=== PATIENT | female | born 1930 | race Caucasian/White ===

== ENCOUNTER 2019-06-13 18:28 | Inpatient (IN) | payer MEDICARE, OTHER ==
[~2019-06-13] VITALS: Ht 152.4 cm; Wt 63.7 kg
[~2019-06-13 18:28] MED LIST: ALPR0.254 PO; ASPI-817 PO; DIAZ5TAB4 PO; DOCU-144 PO; HYDR25TA6 PO; LORA10TA3 PO; MECL-77 PO; OMEP20CA17 PO; PRAV20TA63 PO; VALS160T20 PO; ZOLP5TAB7 PO
[2019-06-13 22:10] VITALS: Ht 152.4 cm; Wt 63.7 kg
[2019-06-13] MEDS ORDERED: MAGNESIUM HYDROXIDE 30ML CUP PO PRN (23:30)
[2019-06-13] MEDS ORDERED: LACTULOSE 30ML CUP PO PRN (23:30)
[2019-06-13] MEDS ORDERED: ACETAMINOPHEN 325 MG TAB PO PRN (23:30)
[2019-06-13] MEDS ORDERED: BISACODYL 10 MG SUPP PR PRN (23:30)
[2019-06-13] MEDS: ZOLPIDEM 5 MG TAB PO PRN (23:41)
[2019-06-14] MEDS ORDERED: IBUPROFEN 400 MG TAB PO SCH
[2019-06-14] MEDS: PANTOPRAZOLE (EC) 40 MG TAB PO SCH (06:36)
[2019-06-14 07:00] VITALS: BP 187/70; PULSE 76; RESP 18
[2019-06-14 08:00] VITALS: BP 159/77; RESP 19
[2019-06-14] MEDS: DOCUSATE SODIUM 100 MG CAP PO SCH ×2 (09:01→22:12)
[2019-06-14] MEDS: LORATADINE 10 MG TAB PO SCH (09:01)
[2019-06-14] MEDS: LOSARTAN 50 MG TAB PO SCH (09:02)
[2019-06-14] MEDS: AMOXICILLIN/CLAV 875 MG TAB PO SCH ×2 (09:02→22:12)
[2019-06-14] MEDS: DIAZEPAM 5 MG TAB PO SCH (09:02)
[2019-06-14] MEDS: ASPIRIN (EC) 81 MG TAB PO SCH (09:02)
[2019-06-14] MEDS ORDERED: FLU VACC QS 2019-20 (6MOS UP) 0.5 ML SYG IM* ONE (10:00)
[2019-06-14 14:00] VITALS: BP 160/71; PULSE 69; RESP 18
[2019-06-14 19:52] VITALS: BP 150/66; PULSE 84; RESP 18
[2019-06-14] MEDS: ALPRAZOLAM 0.25 MG TAB PO PRN (22:12)
[2019-06-14] MEDS: SENNA TAB PO SCH (22:12)
[2019-06-15 02:00] VITALS: BP 143/68; PULSE 75; RESP 18
[2019-06-15] MEDS: PANTOPRAZOLE (EC) 40 MG TAB PO SCH (06:26)
[2019-06-15 07:30] VITALS: BP 143/79; PULSE 78; RESP 18
[2019-06-15] MEDS: DIAZEPAM 5 MG TAB PO SCH (09:00)
[2019-06-15] MEDS: AMOXICILLIN/CLAV 875 MG TAB PO SCH ×2 (09:08→20:16)
[2019-06-15] MEDS: ASPIRIN (EC) 81 MG TAB PO SCH (09:08)
[2019-06-15] MEDS: LOSARTAN 50 MG TAB PO SCH (09:08)
[2019-06-15] MEDS: DOCUSATE SODIUM 100 MG CAP PO SCH ×2 (09:08→20:18)
[2019-06-15] MEDS: LORATADINE 10 MG TAB PO SCH (09:12)
[2019-06-15 14:00] VITALS: BP 133/81; PULSE 108; RESP 18
[2019-06-15 19:36] VITALS: BP 142/86; PULSE 87; RESP 18
[2019-06-15] MEDS: SENNA TAB PO SCH (20:18)
[2019-06-15] MEDS: ZOLPIDEM 5 MG TAB PO PRN (20:20)
[2019-06-16 02:00] VITALS: BP 145/78; PULSE 82; RESP 18
[2019-06-16] MEDS: PANTOPRAZOLE (EC) 40 MG TAB PO SCH (06:37)
[2019-06-16 07:00] VITALS: BP 140/75; PULSE 82; RESP 19
[2019-06-16] MEDS: AMOXICILLIN/CLAV 875 MG TAB PO SCH ×2 (09:49→20:05)
[2019-06-16] MEDS: ASPIRIN (EC) 81 MG TAB PO SCH (09:51)
[2019-06-16] MEDS: LOSARTAN 50 MG TAB PO SCH (09:54)
[2019-06-16] MEDS: DOCUSATE SODIUM 100 MG CAP PO SCH ×2 (09:55→20:08)
[2019-06-16] MEDS: LORATADINE 10 MG TAB PO SCH (09:56)
[2019-06-16 14:00] VITALS: BP 121/51; PULSE 88; RESP 19
[2019-06-16 19:00] VITALS: BP 133/79; PULSE 99; RESP 18
[2019-06-16] MEDS: IBUPROFEN 400 MG TAB PO PRN (19:09)
[2019-06-16] MEDS: SENNA TAB PO SCH (20:05)
[2019-06-16] MEDS: ALPRAZOLAM 0.25 MG TAB PO PRN (20:05)
[2019-06-17 02:06] VITALS: BP 126/61; PULSE 74; RESP 18
[2019-06-17] MEDS: PANTOPRAZOLE (EC) 40 MG TAB PO SCH (05:51)
[2019-06-17 07:00] VITALS: BP 139/66; PULSE 79; RESP 18
[2019-06-17] MEDS: LORATADINE 10 MG TAB PO SCH (08:40)
[2019-06-17] MEDS: AMOXICILLIN/CLAV 875 MG TAB PO SCH ×2 (08:40→21:17)
[2019-06-17] MEDS: ASPIRIN (EC) 81 MG TAB PO SCH (08:40)
[2019-06-17] MEDS: LOSARTAN 50 MG TAB PO SCH (08:44)
[2019-06-17] MEDS: DOCUSATE SODIUM 100 MG CAP PO SCH ×2 (09:00→21:17)
[2019-06-17 14:00] VITALS: BP 178/74; PULSE 90; RESP 18
[2019-06-17] MEDS: IBUPROFEN 400 MG TAB PO PRN (14:29)
[2019-06-17 20:00] VITALS: BP 120/61; PULSE 94; RESP 18
[2019-06-17] MEDS: SENNA TAB PO SCH (21:00)
[2019-06-17] MEDS: NYSTATIN 15 GM CR TOP SCH (21:17)
[2019-06-17] MEDS: ALPRAZOLAM 0.25 MG TAB PO PRN (21:26)
[2019-06-18 02:00] VITALS: BP 121/70; PULSE 73; RESP 18
[2019-06-18] MEDS: PANTOPRAZOLE (EC) 40 MG TAB PO SCH (06:15)
[2019-06-18 07:00] VITALS: BP 141/68; PULSE 81; RESP 18
[2019-06-18] MEDS: DOCUSATE SODIUM 100 MG CAP PO SCH ×2 (09:00→21:00)
[2019-06-18] MEDS: IBUPROFEN 400 MG TAB PO PRN ×2 (09:45→16:04)
[2019-06-18] MEDS: LORATADINE 10 MG TAB PO SCH (09:49)
[2019-06-18] MEDS: LOSARTAN 50 MG TAB PO SCH (09:49)
[2019-06-18] MEDS: AMOXICILLIN/CLAV 875 MG TAB PO SCH ×2 (09:49→21:55)
[2019-06-18] MEDS: NYSTATIN 15 GM CR TOP SCH ×2 (09:50→21:57)
[2019-06-18] MEDS: ASPIRIN (EC) 81 MG TAB PO SCH (10:00)
[2019-06-18] MEDS: MULTIVIT/CA CARB/B CMPLX/FA TAB PO SCH (13:53)
[2019-06-18] MEDS: CHOLECALCIFEROL 1,000 UNIT TAB PO SCH (13:53)
[2019-06-18 14:00] VITALS: BP 140/66; PULSE 78; RESP 18
[2019-06-18 20:00] VITALS: BP 113/59; PULSE 76; RESP 18
[2019-06-18] MEDS: SENNA TAB PO SCH (21:00)
[2019-06-19 02:00] VITALS: BP 139/71; PULSE 77; RESP 18
[2019-06-19] MEDS: ALPRAZOLAM 0.25 MG TAB PO PRN ×2 (04:23→21:37)
[2019-06-19] MEDS: PANTOPRAZOLE (EC) 40 MG TAB PO SCH (06:23)
[2019-06-19 07:30] VITALS: BP 128/67; PULSE 82; RESP 18
[2019-06-19] MEDS: LORATADINE 10 MG TAB PO SCH (08:51)
[2019-06-19] MEDS: MULTIVIT/CA CARB/B CMPLX/FA TAB PO SCH (08:51)
[2019-06-19] MEDS: IBUPROFEN 400 MG TAB PO PRN ×2 (08:51→21:37)
[2019-06-19] MEDS: AMOXICILLIN/CLAV 875 MG TAB PO SCH ×2 (08:51→20:23)
[2019-06-19] MEDS: LOSARTAN 50 MG TAB PO SCH (08:51)
[2019-06-19] MEDS: ASPIRIN (EC) 81 MG TAB PO SCH (08:51)
[2019-06-19] MEDS: CHOLECALCIFEROL 1,000 UNIT TAB PO SCH (08:51)
[2019-06-19] MEDS: NYSTATIN 15 GM CR TOP SCH ×2 (08:52→20:31)
[2019-06-19] MEDS: DOCUSATE SODIUM 100 MG CAP PO SCH ×2 (08:52→20:23)
[2019-06-19 14:00] VITALS: BP 96/63; PULSE 83; RESP 18
[2019-06-19 20:00] VITALS: BP 124/62; PULSE 81; RESP 18
[2019-06-19] MEDS: SENNA TAB PO SCH (20:23)
[2019-06-20 02:00] VITALS: BP 118/71; PULSE 80; RESP 18
[2019-06-20] MEDS: PANTOPRAZOLE (EC) 40 MG TAB PO SCH (06:51)
[2019-06-20 07:30] VITALS: BP 121/59; RESP 20
[2019-06-20] MEDS: AMOXICILLIN/CLAV 875 MG TAB PO SCH ×2 (09:04→20:14)
[2019-06-20] MEDS: ASPIRIN (EC) 81 MG TAB PO SCH (09:04)
[2019-06-20] MEDS: MULTIVIT/CA CARB/B CMPLX/FA TAB PO SCH (09:04)
[2019-06-20] MEDS: LOSARTAN 50 MG TAB PO SCH (09:04)
[2019-06-20] MEDS: CHOLECALCIFEROL 1,000 UNIT TAB PO SCH (09:04)
[2019-06-20] MEDS: NYSTATIN 15 GM CR TOP SCH ×2 (09:05→20:17)
[2019-06-20] MEDS: DOCUSATE SODIUM 100 MG CAP PO SCH ×2 (09:05→20:14)
[2019-06-20] MEDS: LORATADINE 10 MG TAB PO SCH (09:05)
[2019-06-20] MEDS: IBUPROFEN 400 MG TAB PO PRN ×2 (10:50→20:14)
[2019-06-20 14:00] VITALS: BP 117/70; PULSE 93; RESP 20
[2019-06-20 19:56] VITALS: BP 148/74; PULSE 88; RESP 18
[2019-06-20] MEDS: SENNA TAB PO SCH (20:14)
[2019-06-20] MEDS: ALPRAZOLAM 0.25 MG TAB PO PRN (20:14)
[2019-06-21 02:00] VITALS: BP 130/68; PULSE 85; RESP 18
[2019-06-21] MEDS: PANTOPRAZOLE (EC) 40 MG TAB PO SCH (06:37)
[2019-06-21 07:00] VITALS: BP 148/67; PULSE 70; RESP 18
[2019-06-21] MEDS: IBUPROFEN 400 MG TAB PO PRN ×2 (07:55→20:14)
[2019-06-21] MEDS: CHOLECALCIFEROL 1,000 UNIT TAB PO SCH (08:56)
[2019-06-21] MEDS: MULTIVIT/CA CARB/B CMPLX/FA TAB PO SCH (08:56)
[2019-06-21] MEDS: LOSARTAN 50 MG TAB PO SCH (08:56)
[2019-06-21] MEDS: DOCUSATE SODIUM 100 MG CAP PO SCH ×3 (08:56→20:14)
[2019-06-21] MEDS: LORATADINE 10 MG TAB PO SCH (08:56)
[2019-06-21] MEDS: ASPIRIN (EC) 81 MG TAB PO SCH (08:56)
[2019-06-21] MEDS: NYSTATIN 15 GM CR TOP SCH ×2 (08:57→20:23)
[2019-06-21 14:00] VITALS: BP 141/65; PULSE 81; RESP 18
[2019-06-21 19:41] VITALS: BP 158/77; PULSE 78; RESP 18
[2019-06-21] MEDS: SENNA TAB PO SCH (20:14)
[2019-06-21] MEDS: ALPRAZOLAM 0.25 MG TAB PO PRN (20:14)
[2019-06-22] MEDS: ZOLPIDEM 5 MG TAB PO PRN (01:00)
[2019-06-22 02:00] VITALS: BP 138/70; PULSE 85; RESP 18
[2019-06-22] MEDS: PANTOPRAZOLE (EC) 40 MG TAB PO SCH (06:16)
[2019-06-22 07:00] VITALS: BP 159/74; PULSE 76; RESP 18
[2019-06-22] MEDS: MULTIVIT/CA CARB/B CMPLX/FA TAB PO SCH (09:39)
[2019-06-22] MEDS: DOCUSATE SODIUM 100 MG CAP PO SCH ×2 (09:39→20:30)
[2019-06-22] MEDS: CHOLECALCIFEROL 1,000 UNIT TAB PO SCH (09:39)
[2019-06-22] MEDS: LORATADINE 10 MG TAB PO SCH (09:39)
[2019-06-22] MEDS: LOSARTAN 50 MG TAB PO SCH (09:39)
[2019-06-22] MEDS: ASPIRIN (EC) 81 MG TAB PO SCH (09:39)
[2019-06-22] MEDS: NYSTATIN 15 GM CR TOP SCH ×2 (09:40→20:29)
[2019-06-22 14:00] VITALS: BP 119/66; PULSE 87; RESP 19
[2019-06-22 19:36] VITALS: BP 147/75; PULSE 82; RESP 18
[2019-06-22] MEDS: IBUPROFEN 400 MG TAB PO PRN (20:21)
[2019-06-22] MEDS: ALPRAZOLAM 0.25 MG TAB PO PRN (20:25)
[2019-06-22] MEDS: SENNA TAB PO SCH (20:30)
[2019-06-23 02:00] VITALS: BP 138/68; PULSE 77; RESP 18
[2019-06-23] MEDS: PANTOPRAZOLE (EC) 40 MG TAB PO SCH (07:25)
[2019-06-23 07:30] VITALS: BP 144/73; PULSE 71; RESP 20
[2019-06-23] MEDS: CHOLECALCIFEROL 1,000 UNIT TAB PO SCH (09:21)
[2019-06-23] MEDS: MULTIVIT/CA CARB/B CMPLX/FA TAB PO SCH (09:22)
[2019-06-23] MEDS: ASPIRIN (EC) 81 MG TAB PO SCH (09:22)
[2019-06-23] MEDS: DOCUSATE SODIUM 100 MG CAP PO SCH ×2 (09:22→20:48)
[2019-06-23] MEDS: LOSARTAN 50 MG TAB PO SCH (09:22)
[2019-06-23] MEDS: LORATADINE 10 MG TAB PO SCH (09:22)
[2019-06-23] MEDS: NYSTATIN 15 GM CR TOP SCH ×2 (09:23→20:45)
[2019-06-23 14:00] VITALS: BP 137/73; PULSE 85; RESP 20
[2019-06-23 19:40] VITALS: BP 142/69; PULSE 82; RESP 18
[2019-06-23] MEDS: ALPRAZOLAM 0.25 MG TAB PO PRN (20:46)
[2019-06-23] MEDS: IBUPROFEN 400 MG TAB PO PRN (20:46)
[2019-06-23] MEDS: SENNA TAB PO SCH (20:48)
[2019-06-24 01:24] VITALS: BP 151/76; PULSE 68; RESP 18
[2019-06-24] MEDS: IBUPROFEN 400 MG TAB PO PRN (02:06)
[2019-06-24] MEDS: PANTOPRAZOLE (EC) 40 MG TAB PO SCH (06:37)
[2019-06-24 07:00] VITALS: BP 147/72; PULSE 72; RESP 18
[2019-06-24] MEDS: ASPIRIN (EC) 81 MG TAB PO SCH (09:03)
[2019-06-24] MEDS: LORATADINE 10 MG TAB PO SCH (09:03)
[2019-06-24] MEDS: MULTIVIT/CA CARB/B CMPLX/FA TAB PO SCH (09:03)
[2019-06-24] MEDS: DOCUSATE SODIUM 100 MG CAP PO SCH ×2 (09:03→20:44)
[2019-06-24] MEDS: CHOLECALCIFEROL 1,000 UNIT TAB PO SCH (09:03)
[2019-06-24] MEDS: LOSARTAN 50 MG TAB PO SCH (09:04)
[2019-06-24] MEDS: NYSTATIN 15 GM CR TOP SCH ×2 (09:05→21:33)
[2019-06-24] MEDS ORDERED: PENDING SANTYL ORDER FOR WOUND CARE XX PRN (11:00)
[2019-06-24 14:00] VITALS: BP 121/65; PULSE 91; RESP 18
[2019-06-24 20:00] VITALS: BP 140/69; PULSE 77; RESP 18
[2019-06-24] MEDS: ALPRAZOLAM 0.25 MG TAB PO PRN (20:44)
[2019-06-24] MEDS: SENNA TAB PO SCH (20:44)
[2019-06-24] MEDS: ZOLPIDEM 5 MG TAB PO PRN (21:31)
[2019-06-25 04:00] VITALS: BP 141/81; PULSE 73; RESP 18
[2019-06-25] MEDS: PANTOPRAZOLE (EC) 40 MG TAB PO SCH (05:35)
[2019-06-25 07:00] VITALS: BP 130/60; PULSE 78; RESP 18
[2019-06-25] MEDS: CHOLECALCIFEROL 1,000 UNIT TAB PO SCH (09:12)
[2019-06-25] MEDS: LOSARTAN 50 MG TAB PO SCH (09:12)
[2019-06-25] MEDS: DOCUSATE SODIUM 100 MG CAP PO SCH ×2 (09:12→20:35)
[2019-06-25] MEDS: MULTIVIT/CA CARB/B CMPLX/FA TAB PO SCH (09:12)
[2019-06-25] MEDS: ASPIRIN (EC) 81 MG TAB PO SCH (09:12)
[2019-06-25] MEDS: LORATADINE 10 MG TAB PO SCH (09:12)
[2019-06-25] MEDS: NYSTATIN 15 GM CR TOP SCH ×2 (09:19→20:41)
[2019-06-25 14:00] VITALS: BP 132/76; PULSE 70; RESP 18
[2019-06-25 20:00] VITALS: BP 140/63; PULSE 90; RESP 18
[2019-06-25] MEDS: SENNA TAB PO SCH (20:35)
[2019-06-25] MEDS: ALPRAZOLAM 0.25 MG TAB PO PRN (20:35)
[2019-06-26 02:00] VITALS: BP 128/73; PULSE 70; RESP 18
[2019-06-26] MEDS: PANTOPRAZOLE (EC) 40 MG TAB PO SCH (06:12)
[2019-06-26 07:00] VITALS: BP 176/80; PULSE 79; RESP 18
[2019-06-26] MEDS: CHOLECALCIFEROL 1,000 UNIT TAB PO SCH (08:35)
[2019-06-26] MEDS: DOCUSATE SODIUM 100 MG CAP PO SCH (08:35)
[2019-06-26] MEDS: MULTIVIT/CA CARB/B CMPLX/FA TAB PO SCH (08:35)
[2019-06-26] MEDS: LOSARTAN 50 MG TAB PO SCH (08:35)
[2019-06-26] MEDS: LORATADINE 10 MG TAB PO SCH (08:35)
[2019-06-26] MEDS: ASPIRIN (EC) 81 MG TAB PO SCH (08:35)
[2019-06-26] MEDS: NYSTATIN 15 GM CR TOP SCH (08:36)
== END 2019-06-26 14:40 | disposition home health service (06) | DRG 945 ==
LOC: VRC 18:28 → UNDOADMIN 18:28 → VRC 21:58
PROVIDERS: ADMIT Physical Medicine & Rehabilitation; ATTEND Internal Medicine Pulmonary Disease
PROC: F07Z5ZZ Bed Mobility Treatment (ICD-10-PCS; principal; 2019-06-14)
PROC: F07Z8ZZ Transfer Training Treatment (ICD-10-PCS; 2019-06-14)
PROC: F07Z9ZZ Gait Training/Functional Ambulation Treatment (ICD-10-PCS; 2019-06-14)
PROC: F08Z2ZZ Grooming/Personal Hygiene Treatment (ICD-10-PCS; 2019-06-14)
PROC: F08Z1ZZ Dressing Techniques Treatment (ICD-10-PCS; 2019-06-14)
PROC: F08Z0ZZ Bathing/Showering Techniques Treatment (ICD-10-PCS; 2019-06-14)
DX: R53.81 Other malaise (principal); N17.9 Acute kidney failure, unspecified; E87.1 Hypo-osmolality and hyponatremia; M17.12 Unilateral primary osteoarthritis, left knee; M11.262 Other chondrocalcinosis, left knee; E78.5 Hyperlipidemia, unspecified; F41.9 Anxiety disorder, unspecified; I10 Essential (primary) hypertension; K29.70 Gastritis, unspecified, without bleeding; R21 Rash and other nonspecific skin eruption; Z74.09 Other reduced mobility; Z93.1 Gastrostomy status; Z79.82 Long term (current) use of aspirin; Z87.09 Personal history of other diseases of the respiratory system
CPT/HCPCS: 80053; 81001; 85025; 87081; 87086; 90686; 92507; 92523; 97110; 97112; 97116; 97150; 97163; 97167; 97530; 97535; G0008; L1820